=== PATIENT | male | born 1975 | race Caucasian/White ===

== ENCOUNTER 2016-12-28 06:18 | Day surgery (SDC) | payer BC ==
--- NOTE | ~2016-12-28 | EGD ---
EGD REPORT [facility] [address] [place] [id number] NAME: LAURITA SAENZ : [birth year] STATUS : REG [facility]#: [id number] AGE: 41 ADM/REG DATE : 12/28/16 MR#: [id number] REPORT SERV DATE: 12/28/16 DICTATED BY: KIKA GONZALEZ DATE: 12/28/16 REPORT STATUS : Draft TRANSCRIBED BY: [employer] DATE: 12/28/16 Endoscopy Center Patient Name: Laurita Saenz Date of : 1975 Attending MD: KIKA GONZALEZ MD Procedure Date No Time: 12/28/2016 Procedure: Colonoscopy Indications: Rectal bleeding, FH of Colon Cancer -distant relative Referring MD: DEWAYNE DANIELS Medicines: as per anesthesia Complications: No immediate complications. Procedure: Pre-Anesthesia Assessment: - ASA Grade Assessment: II - A patient with mild systemic disease. After I obtained informed consent, the scope was passed under direct vision. Throughout the procedure, the patient's blood pressure, pulse, and oxygen saturations were monitored continuously. The PCF [id number] was introduced through the anus and advanced to the cecum, identified by appendiceal orifice and ileocecal valve. The colonoscopy was performed without difficulty. The patient tolerated the procedure. The quality of the bowel preparation was adequate to identify polyps. Findings: The perianal and digital rectal examinations were normal. Internal hemorrhoids were found during endoscopy and were mild. Impression: - Internal hemorrhoids. Recommendation: - Repeat colonoscopy in 5 years for surveillance. Procedure Code(s): --- Professional --- 12176, Colonoscopy, flexible, proximal to splenic flexure; diagnostic, with or without collection of specimen(s) by brushing or washing, with or without colon decompression (separate procedure) Diagnosis Code(s): --- Professional --- K64.8, Other hemorrhoids K62.5, Hemorrhage of anus and rectum Z80.0, Family history of malignant neoplasm of digestive organs EGD REPORT [facility] [address] [place] [place]. [address] NAME: LAURITA SAENZ : [birth year] STATUS : REG [facility]#: [id number] AGE: 41 ADM/REG DATE : 12/28/16 MR#: [id number] REPORT SERV DATE: 12/28/16 DICTATED BY: KIKA GONZALEZ. DATE: 12/28/16 REPORT STATUS : Draft TRANSCRIBED BY: [employer] DATE: 12/28/16 CPT copyright 2013 [employer]. All rights reserved. The codes documented in this report are preliminary and upon olive pitter review may be revised to meet current compliance requirements. KIKA GONZALEZ MD 12/28/2016 8:38 AM This report has been signed electronically. Number of Addenda: 0 Note Initiated On: 12/28/2016 8:03 AM Scope Withdrawal Time 0 hours 6 minutes 32 seconds [address] [facility] [place] [address]
--- NOTE | ~2016-12-28 | EGD ---
EGD REPORT [facility] [address] [address] NAME: LAURITA SAENZ : [birth year] STATUS : REG [facility]#: [id number] AGE: 41 ADM/REG DATE : 12/28/16 MR#: [id number] REPORT SERV DATE: 12/28/16 DICTATED BY: KIKA GONZALEZ DATE: 12/28/16 REPORT STATUS : Draft TRANSCRIBED BY: [facility] DATE: 12/28/16 Endoscopy Center Patient Name: Laurita Saenz Date of : 1975 Attending MD: KIKA GONZALEZ MD Procedure Date No Time: 12/28/2016 Procedure: Upper GI endoscopy Indications: Epigastric abdominal pain, Heartburn, Suspected esophageal reflux Referring MD: DEWAYNE DANIELS Medicines: as per anesthesia Complications: No immediate complications. Procedure: Pre-Anesthesia Assessment: - ASA Grade Assessment: II - A patient with mild systemic disease. After obtaining informed consent, the endoscope was passed under direct vision. Throughout the procedure, the patient's blood pressure, pulse, and oxygen saturations were monitored continuously. The GIF [id number] was introduced through the mouth, and advanced to the third part of duodenum. The upper GI endoscopy was accomplished without difficulty. The patient tolerated the procedure. Findings: The examined esophagus was normal. Localized mild inflammation characterized by erythema and friability was found in the gastric antrum. Biopsies were taken with a cold forceps for histology. The cardia and gastric fundus were normal on retroflexion. The examined duodenum was normal. Impression: - Normal esophagus. - Gastritis. Biopsied. - Normal examined duodenum. Recommendation: - Await pathology results. - Continue present medications. - Follow an antireflux regimen. Procedure Code(s): --- Professional --- 23903, Esophagogastroduodenoscopy, flexible, transoral; with biopsy, single or multiple Diagnosis Code(s): --- Professional --- EGD REPORT [place] [id number] [id number] NAME: LAURITA SAENZ : [birth year] STATUS : REG [facility] PAT#: [id number] AGE: 41 ADM/REG DATE : 12/28/16 MR#: [id number] REPORT SERV DATE: 12/28/16 DICTATED BY: KIKA GONZALEZ. DATE: 12/28/16 REPORT STATUS : Draft TRANSCRIBED BY: [employer] DATE: 12/28/16 K29.70, Gastritis, unspecified, without bleeding R10.13, Epigastric pain R12, Heartburn CPT copyright 2013 [employer] [place] [employer]. All rights reserved. The codes documented in this report are preliminary and upon cigarette examiner review may be revised to meet current compliance requirements. KIKA GONZALEZ MD 12/28/2016 8:20 AM This report has been signed electronically. Number of Addenda: 0 Note Initiated On: 12/28/2016 8:07 AM Scope Withdrawal Time 0 hours 0 minutes 0 seconds [id number] [id number]
[~2016-12-28 06:18] MED LIST: ADDERXR30; ADVIL PO; DYMISTA NASAL S23 GM NAS; ENDOCET1 TA3 PO; PEP20 PO; PRILOSEC40 MG PO; PRIN5 PO; PROBIOTIC; [UNRECOGNIZED DRUG - REMARK]
== END 2016-12-28 23:59 | disposition home or self-care (01) ==
LOC: DMU 06:18
PROVIDERS: Internal Medicine Gastroenterology
PROC: 0DJD8ZZ Inspection of Lower Intestinal Tract, Via Natural or Artificial Opening Endoscopic (ICD-10-PCS; principal; 2016-12-28 08:00)
PROC: 0DB68ZX Excision of Stomach, Via Natural or Artificial Opening Endoscopic, Diagnostic (ICD-10-PCS; 2016-12-28 08:00)
DX: K64.8 Other hemorrhoids (principal); K62.5 Hemorrhage of anus and rectum; K29.70 Gastritis, unspecified, without bleeding; K21.9 Gastro-esophageal reflux disease without esophagitis; I10 Essential (primary) hypertension; G89.29 Other chronic pain; M25.50 Pain in unspecified joint; Z79.899 Other long term (current) drug therapy; Z87.891 Personal history of nicotine dependence; Z98.890 Other specified postprocedural states; Z96.643 Presence of artificial hip joint, bilateral
CPT/HCPCS: 88305